=== PATIENT | female | born 1970 | race Two or more races ===

== ENCOUNTER 2020-08-06 13:05 | Outpatient (CLI) | payer OTHER | END 2020-08-06 13:14 | disposition home or self-care (01) | LOC: MRI 13:05 | PROVIDERS: ATTEND Anesthesiology | DX: M54.17 Radiculopathy, lumbosacral region (principal); M54.5 Low back pain | CPT/HCPCS: 72148 ==

== ENCOUNTER 2022-01-07 13:19 | Outpatient (CLI) | payer OTHER | END 2022-01-07 13:33 | disposition home or self-care (01) | LOC: RAD 13:19 | PROVIDERS: ATTEND Internal Medicine | DX: M54.2 Cervicalgia (principal); M54.50 Low back pain, unspecified ==